=== PATIENT | male | born 1945 | race Two or more races ===

== ENCOUNTER 2018-08-17 10:42 | Emergency (ER) | payer OTHER ==
[2018-08-17 10:51] VITALS: BMI 32.5
--- NOTE | 2018-08-17 11:14 | PDOC ---
History of Present Illness - General Chief Complaint: Urinary Problem Stated Complaint: BACK PAIN - History of Present Illness Initial Comments: The pt is a 73M w/ a history of HTN who presents for evaluation of 6 weeks of foul smelling urine, R testicular pain, and generalized abd pain. He is unable to qualify the pain, states it is all over his abdomen and back, is intermittent , not alleviated/exacerbated by anything he can identify. He has never had this happen before. Denies fevers/chills, dysuria, hematuria, diarrhea, blood in his stool, intra- abdominal surgery, N/V, previous or suspected hernia 08/17/18 11:35 Past History - Past Medical History Allergies/Adverse Reactions: Allergies Allergy/AdvReac Type Severity Reaction Status Date / Time No Known Allergies Allergy Verified 08/11/13 10:42 Home Medications: Ambulatory Orders levoFLOXacin [Levaquin] 750 mg PO DAILY #6 tab 08/17/18 Cardiac Disorders: Yes (cad) CVA: Yes (left side weakness) COPD: No Hypercholesterolemia: Yes - Immunization History Immunization Up to Date: Yes - Suicide/Smoking/Psychosocial Hx Smoking History: Never smoked Have you smoked in the past 12 months: No Information on smoking cessation initiated: No Hx Alcohol Use: No Drug/Substance Use Hx: No Substance Use Type: None Hx Substance Use Treatment: No Review of Systems - Review of Systems Able to Perform ROS?: Yes Comments:: GENERAL/CONSTITUTIONAL: No fever or chills. No weakness._ HEAD, EYES, EARS, NOSE AND THROAT: No change in vision. No ear pain or discharge. No sore throat._ CARDIOVASCULAR: No chest pain or shortness of breath_ RESPIRATORY: Denies cough, hemoptysis_ GASTROINTESTINAL: No nausea, vomiting, diarrhea or constipation._ GENITOURINARY: No dysuria, frequency, or change in urination._ MUSCULOSKELETAL: No joint or muscle swelling or pain. No neck or back pain._ SKIN: No rash_ NEUROLOGIC: No headache, vertigo, loss of consciousness, or change in strength/ sensation._ ENDOCRINE: No increased thirst. No abnormal weight change_ HEMATOLOGIC/LYMPHATIC: No anemia, easy bleeding, or history of blood clots._ ALLERGIC/IMMUNOLOGIC: No hives or skin allergy._ 08/17/18 11:14 Is the patient limited Maori proficient: No *Physical Exam - Vital Signs Last Vital Signs Temp Pulse Resp BP Pulse Ox 98 F 79 17 181/90 H 98 08/17/18 10:47 08/17/18 10:47 08/17/18 10:47 08/17/18 10:47 08/17/18 10:47 - Physical Exam Comments: GENERAL: Awake, alert, and oriented to person/place/time, in no acute distress_ HEAD: No signs of trauma, normocephalic, atraumatic _ EYES: PERRLA, EOMI, sclera anicteric, conjunctiva clear_ ENT: Hearing grossly normal, nares patent, oropharynx clear without exudates. No uvular deviation. Moist mucosa_ NECK: Normal ROM, supple, no lymphadenopathy, JVD, or masses_ LUNGS: No distress, speaks in full sentences, clear to auscultation bilaterally _ HEART: Regular rate and rhythm, normal S1 and S2, no murmurs appreciated, peripheral pulses normal and equal bilaterally._ ABDOMEN: Soft, nontender, normoactive bowel sounds. No guarding, no rebound. No masses_ EXTREMITIES: Normal inspection, Normal range of motion, no edema. No clubbing or cyanosis_ NEUROLOGICAL: Cranial nerves II through XII grossly intact. Normal speech, normal gait, no focal sensorimotor deficits _ SKIN: Warm, Dry, normal turgor, no rashes or lesions noted_ 08/17/18 11:14 ED Treatment Course - LABORATORY CBC & Chemistry Diagram: 08/17/18 11:44 08/17/18 11:44 Medical Decision Making - Medical Decision Making The pt is a 73M UA w/ evidence of UTI No MINERVA No leukocytosis Lytes wnl LFTs unremarkable No anemia 08/17/18 12:40 Scrotal US IMPRESSION: Mildly enlarged heterogeneous and hypoechoic right epididymis containing few small echogenic foci coupled with small right-sided hydrocele but with no increased vascularity suggestive of chronic epididymitis. 08/17/18 15:41 *DC/Admit/Observation/Transfer Diagnosis at time of Disposition: UTI (urinary tract infection) Qualifiers: Urinary tract infection type: site unspecified Hematuria presence: without hematuria Qualified Code(s): N39.0 - Urinary tract infection, site not specified - Discharge Dispostion Disposition: HOME Condition at time of disposition: Stable Decision to Admit order: No - Prescriptions Prescriptions: levoFLOXacin [Levaquin] 750 mg PO DAILY #6 tab - Referrals Referrals: [facility] [place] [facility] [place] [Provider Group] - Patient Instructions Printed Discharge Instructions: DI for Urinary Tract Infection (UTI) Additional Instructions: You were seen in the Emergency Department for evaluation of foul smelling urine and abdominal pain. You were found to have a urinary tract infection, your ultrasound was notable for mild right-sided epidimitis likely due to the urinary tract infection, and your CT scan was unremarkable. Review the handout provided at discharge. A prescription for Levofloxacin 750mg daily was sent to the pharmacy that you specified. Return to the Emergency Department if you develop fevers/chills, chest pain, trouble breathing, worsening pain, worsening symptoms, blood in your urine, or any new/concerning symptoms. Usted fue atendido en el Departamento de Emergencias para la evaluacin de orina de mal olor y dolor abdominal. Se descubri que melly fide infeccin del tracto urinario, lambert ecografa fue notable por fide leve epidimitis en el lado derecho, probablemente debido a la infeccin del tracto urinario, y lambert tomografa computarizada no fue nada notable. Revise el folleto provisto al momento del indy. Se envi fide receta de Levofloxacina 750 mg al da a la farmacia que usted especific. Regrese al Departamento de Emergencias si presenta fiebre / escalofros, dolor en el pecho, dificultad para respirar, empeoramiento del dolor, empeoramiento de los sntomas, mary en la orina o cualquier sntoma nuevo o relacionado. - Post Discharge Activity
[2018-08-17] MEDS ORDERED: ACETAMINOPHEN 1000 MG/100 ML VIAL (NON FORMULARY) IVPB ONE (11:52)
[2018-08-17 12:05] LABS: BASO % 0.6 % (0-2.0); EOS % 2.9 % (0-4.5); HEMATOCRIT 43.4 % (35.4-49); HEMOGLOBIN 14.5 GM/dL (11.7-16.9); LYMPH % 30.6 % (8-40); MCH 30.2 pg (25.7-33.7); MCHC 33.4 g/dl (32.0-35.9); MEAN CELL VOLUME 90.4 fl (80-96); MEAN PLT VOLUME 8.3 fl (7.5-11.1); MONO % 9.4 % (3.8-10.2); NEUT % 56.5 % (42.8-82.8); PLATELET COUNT 207 K/MM3 (134-434); RDW 14.3 % (11.9-15.9); WHITE BLOOD COUNT 5.5 K/mm3 (4.0-10.0)
[2018-08-17 12:07] LABS: EPI CELLS 3.4 /HPF (0-5/HPF); HYALINE CASTS 6 /lpf (0-8); PH,URINE 5.5 (5.0-8.0); URINE APPEARANCE CLEAR; URINE BACTERIA 108.7 /hpf (NEGATIVE); URINE BILIRUBIN NEGATIVE (NEGATIVE); URINE COLOR YELLOW; URINE GLUCOSE (UA) NEGATIVE (NEGATIVE); URINE KETONE NEGATIVE (NEGATIVE); URINE LEUK ESTERASE 1+ (NEGATIVE); URINE NITRITE POSITIVE (NEGATIVE); URINE PROTEIN NEGATIVE (NEGATIVE); URINE RBC 2 /hpf (0-4); URINE UROBILINOGEN 0.2 mg/dL (0.2-1.0); URINE WBC 10 /hpf (0-5)
[2018-08-17] MEDS ORDERED: ACETAMINOPHEN INJECTION 100 ML IVPB ONE (12:08)
[2018-08-17 12:39] LABS: ALBUMIN 3.1 g/dl (3.4-5.0); BILIRUBIN,TOTAL 0.2 mg/dL (0.2-1); BLOOD UREA NITROGEN 14.1 mg/dL (7-18); CALCIUM 8.3 mg/dL (8.5-10.1); TOT PROT 6.9 g/dl (6.4-8.2)
--- NOTE | 2018-08-17 14:00 | PDOC ---
Documentation entered by Meenu Betancourt SCRIBE, acting as scribe for Manuelito Beltran MD. Manuelito Beltran MD: This documentation has been prepared by the [facility], SCRIBE, under my direction and personally reviewed by me in its entirety. I confirm that the documentation accurately reflects all work, treatment, procedures, and medical decision making performed by me. Attending Attestation - Resident Resident Name: Jone Walter - ED Attending Attestation I have performed the following: I have examined & evaluated the patient, The case was reviewed & discussed with the resident, I agree w/resident's findings & plan - HPI HPI: 08/17/18 13:50 73-year-old M without established primary care follow-up, known h/o R testicular cyst presents now with several days of foul smelling urine and new abdominal pain. no n/v/d/c, no dysuria/hematuria/frequency, no fever/chills. also reports R testicle discomfort, ? chronic v acute - Physicial Exam PE: 08/17/18 13:54 afebrile, BP elevated well appearing, nad no jaundice/pallor s1s2 rrr, ctab abd soft/nt/nd bs nl. no pulsatile palpable mass, no cvat. reducible umbilical hernia. normal uncircumsized penis without urethral discharge, no notable scrotal erythema/swelling, no testicular enlargement, slight discomfort R testicle. normal inguinal region b/l without LAD or hernia. - Medical Decision Making 08/17/18 13:55 73 y/o M untreated HTN p/w subacute testicular discomfort and new abdominal pain. consistent with UTI, r/o AAA given elevated BP and abd pain. labs, ua scrotal sono ctap reassess
[2018-08-17] MEDS ORDERED: CEFTRIAXONE 1,000 MG in DEXTROSE 5%-WATER - 50 ML IVPB ONE (14:44)
[2018-08-17] MEDS ORDERED: CEFTRIAXONE 1 GM/50 ML BAG ONE (15:55)
[2018-08-17 17:04] VITALS: BP 168/84; PULSE 62; TEMP 97.9
== END 2018-08-17 16:50 | disposition home or self-care (01) ==
LOC: JER 10:42
DX: N39.0 Urinary tract infection, site not specified (principal); E78.00 Pure hypercholesterolemia, unspecified; I69.854 Hemiplegia and hemiparesis following other cerebrovascular disease affecting left non-dominant side
CPT/HCPCS: 36415; 74177-TC; 76870-TC; 80053; 81003; 85025; 87086; 96365; 99282-25; J0131